=== PATIENT | female | born 1975 | race Caucasian/White ===

== ENCOUNTER 2023-10-24 22:34 | Emergency (ER) | payer OTHER ==
[~2023-10-24] VITALS: Ht 157.5 cm; Wt 61.2 kg
[2023-10-24 22:40] VITALS: BP_SYST 123; PULSE 67; RESP 21; TEMP 98; O2SAT 96
[2023-10-24] MEDS ORDERED: NACL 0.9% 1,000 ML IV ONE (22:45)
[2023-10-24] MEDS ORDERED: DIPHTH,PERTUSS(ACELL),TET VAC 0.5 ML VIAL (Tdap) I.M. ONE (22:45)
[2023-10-24] MEDS ORDERED: HYDROmorphone 1 MG/ML INJ. CARTRIDGE IVP ONE (22:45)
[2023-10-24] MEDS ORDERED: SILVER SULFADIAZINE 1%, 25 GM TOPICAL CREAM (SSD) TP ONE (23:00)
[2023-10-25] MEDS ORDERED: ONDANSETRON HCL 4 MG/2 ML VIAL IVP ONE (00:30)
[2023-10-25] MEDS ORDERED: AMOXICILLIN/POTASSIUM CLAV 875 MG TABLET PO ONE (00:45)
[2023-10-25] MEDS ORDERED: HYDROcodone/ACETAMIN 5-325 MG TAB (NORCO/ VICODIN) PO ONE (00:45)
[2023-10-25] MEDS ORDERED: AUG875 PO (00:50)
[2023-10-25] MEDS ORDERED: HYDR-3917 PO (00:50)
[2023-10-25 01:21] VITALS: BP_SYST 120; PULSE 64; RESP 20; TEMP 98; O2SAT 96
== END 2023-10-25 01:21 | disposition home or self-care (01) ==
LOC: SED 22:34
DX: T24.211A Burn of second degree of right thigh, initial encounter (principal); T31.0 Burns involving less than 10% of body surface; Z79.899 Other long term (current) drug therapy; X08.8XXA Exposure to other specified smoke, fire and flames, initial encounter; Y93.89 Activity, other specified; Y92.89 Other specified places as the place of occurrence of the external cause; Y99.8 Other external cause status
CPT/HCPCS: 99284; 96374; 96361; 16020; 96375; J1170; J7030; J2405